=== PATIENT | female | born 1950 | race Asian ===

== ENCOUNTER 2018-09-30 15:43 | Emergency (ER) | payer OTHER ==
[~2018-09-30] VITALS: Ht 162.6 cm; Wt 61.2 kg
[2018-09-30 16:02] VITALS: Ht 162.6 cm; Wt 61.2 kg
[2018-09-30 17:47] LABS: PLATELET COUNT 364 x10^3mcL (130-400); RED CELL DISTRIBUTION WIDTH 13.8 % (11.5-14.5)
[2018-09-30 17:54] LABS: CALCIUM 8.8 mg/dL (8.5-10.1); CARBON DIOXIDE 24.8 mmol/L (21-32); CHLORIDE SERUM 107 mmol/L (98-107); CREATININE SERUM 0.7 mg/dL (0.6-1.0); GFR1 > 60 mL/min; GLUCOSE SERUM 267 mg/dL (74-106); POTASSIUM SERUM 3.7 mmol/L (3.5-5.1); SODIUM SERUM 142 mmol/L (136-145)
[2018-09-30 18:00] LABS: ALBUMIN 3.4 g/dL (3.4-5.0); ALKALINE PHOSPHATASE 162 U/L (46-116); ALT/SGPT 17 U/L (14-59); AST/SGOT 22 U/L (15-37); BILIRUBIN TOTAL 0.53 mg/dL (0.20-1.00)
[2018-09-30 18:28] VITALS: BP 106/54
[2018-09-30 18:39] LABS: BAND NEUTROPHIL 5 % (0-10); MONOCYTE 4 % (0-7); MYELOCYTE 1 % (0-2); PLATELET MORPHOLOGY PLATELETS NORMAL; SEGMENTED NEUTROPHILS 81 % (37-75); ovalocyte/elliptocyte 1+; rbc morphology (normal/abnorm) ABNORMAL (NORMAL); tear drop cell (dacryocyte) 1+
== END 2018-09-30 22:30 | disposition short-term general hospital (02) ==
LOC: ED 15:43
PROVIDERS: Emergency Medicine
DX: S72.401A Unspecified fracture of lower end of right femur, initial encounter for closed fracture (principal); S02.81XA Fracture of other specified skull and facial bones, right side, initial encounter for closed fracture; S01.83XA Puncture wound without foreign body of other part of head, initial encounter; M06.9 Rheumatoid arthritis, unspecified; I10 Essential (primary) hypertension; Z88.0 Allergy status to penicillin; V49.19XA Passenger injured in collision with other motor vehicles in nontraffic accident, initial encounter; Y93.I9 Activity, other involving external motion; Y92.413 State road as the place of occurrence of the external cause; Y99.8 Other external cause status
CPT/HCPCS: J1885; J2270; J2405; J2765; Q0092